=== PATIENT | female | born 1990 | race Caucasian/White ===

== ENCOUNTER 2019-10-24 16:06 | Emergency (ER) | payer OTHER ==
[~2019-10-24] VITALS: Ht 162.6 cm; Wt 55.0 kg
[2019-10-24 16:24] VITALS: BP 132/84
== END 2019-10-24 18:45 | disposition left against medical advice (07) ==
LOC: ER 16:06
DX: R04.0 Epistaxis (principal); Z53.21 Procedure and treatment not carried out due to patient leaving prior to being seen by health care provider